=== PATIENT | female | born 1965 | race Caucasian/White ===

== ENCOUNTER 2021-02-14 18:40 | Emergency (ER) | payer SELFPAY ==
[~2021-02-14] VITALS: Ht 162.6 cm; Wt 86.2 kg
[2021-02-14 18:54] VITALS: BP_SYST 211
[2021-02-14 19:32] LABS: BASOPHILS # (AUTO) 0.1 K/uL (0.0-0.2); BASOPHILS % (AUTO) 0.5 % (0.0-2.0); EOSINOPHILS # (AUTO) 0.3 K/uL (0.0-0.4); EOSINOPHILS % (AUTO) 2.8 % (0.0-4.0); HEMATOCRIT 34.5 % (36-48); HEMOGLOBIN 11.7 g/dL (12.0-16.0); LYMPHOCYTES # (AUTO) 3.4 K/uL (1.0-5.5); MEAN CORPUSCULAR HEMOGLOBIN 29 pg (27-31); MEAN CORPUSCULAR HGB CONC 34 % (32-36); MEAN CORPUSCULAR VOLUME 85 fL (79.0-98.0); MONOCYTES # (AUTO) 0.5 K/uL (0.0-1.0); NEUTROPHILS # (AUTO) 5.5 K/uL (1.8-7.7); NEUTROPHILS % (AUTO) 56.7 % (40.0-70.0); PLATELET COUNT (AUTO) 329 K/uL (130-430); RED BLOOD CELL COUNT(AUTO) 4.04 MIL/uL (4.2-6.2); RED CELL DISTRIBUTION WIDTH 16.4 % (9.0-15.0); WHITE BLOOD COUNT (AUTO) 9.8 K/uL (4.8-10.8)
[2021-02-14 19:52] LABS: CALCIUM 8.8 mg/dL (8.4-11.0); CREATININE 0.84 mg/dL (0.55-1.30); POTASSIUM 3.3 mmol/L (3.5-5.1)
[2021-02-14 19:57] LABS: ALBUMIN 3.7 g/dL (3.4-4.8); TOTAL BILIRUBIN 0.3 mg/dL (0.0-1.0)
[2021-02-14 20:00] LABS: PROTHROMBIN TIME 9.8 SECS (9.5-12.5)
[2021-02-14] MEDS ORDERED: cloNIDine HCL 0.1 MG TABLET ONE (21:47)
[2021-02-14] MEDS ORDERED: cloNIDine HCL 0.1 MG TABLET PO ONE (22:00)
[2021-02-14 22:05] VITALS: BP_SYST 166
== END 2021-02-14 22:05 | disposition home or self-care (01) ==
LOC: SED 18:40
DX: N93.8 Other specified abnormal uterine and vaginal bleeding (principal)
CPT/HCPCS: 36415; 76376; 80053; 82150-TC; 83690-TC; 84703; 85025; 85610-TC; 85730-TC; 86886; 86900; 86901; 99284

== ENCOUNTER 2024-03-02 11:01 | Inpatient (IN) | payer BC ==
[~2024-03-02] VITALS: Ht 160 cm; Wt 98.9 kg
[2024-03-02 11:05] VITALS: BP_SYST 214; PULSE 96; RESP 19; TEMP 97.3; O2SAT 97
[2024-03-02] MEDS: MORPHINE 4 MG INJ. 4 MG/ML VIAL IM ONE (11:28)
[2024-03-02] MEDS: ONDANSETRON 4 MG ODT TAB PO ONE (11:28)
[2024-03-02] MEDS: cloNIDine HCL 0.1 MG TABLET PO ONE (11:47)
[2024-03-02 11:50] LABS: BASOPHILS # (AUTO) 0.1 K/uL (0.0-0.2); BASOPHILS % (AUTO) 0.4 % (0.0-2.0); EOSINOPHILS % (AUTO) 0.1 % (0.0-4.0); HEMATOCRIT 42.6 % (36-48); HEMOGLOBIN 14.8 g/dL (12.0-16.0); LYMPHOCYTES # (AUTO) 1.3 K/uL (1.0-5.5); LYMPHOCYTES % (AUTO) 9.5 % (20.5-51.5); MEAN CORPUSCULAR HEMOGLOBIN 30 pg (27-31); MEAN CORPUSCULAR HGB CONC 35 % (32-36); MEAN CORPUSCULAR VOLUME 87 fL (79.0-98.0); MONOCYTES # (AUTO) 0.3 K/uL (0.0-1.0); MONOCYTES % (AUTO) 1.9 % (1.7-9.3); NEUTROPHILS # (AUTO) 11.7 K/uL (1.8-7.7); NEUTROPHILS % (AUTO) 88.1 % (40.0-70.0); PLATELET COUNT (AUTO) 347 K/uL (130-430); RED BLOOD CELL COUNT(AUTO) 4.87 MIL/uL (4.2-6.2); RED CELL DISTRIBUTION WIDTH 15.1 % (9.0-15.0); WHITE BLOOD COUNT (AUTO) 13.3 K/uL (4.8-10.8)
[2024-03-02] MEDS: NACL 0.9% 1,000 ML IV ONE (12:08)
[2024-03-02 12:09] LABS: INR 0.9 (0.8-1.2); PROTHROMBIN TIME 9.8 SECS (9.5-12.5)
[2024-03-02 12:18] LABS: ANION GAP 12 (5-15); CALCIUM 9.5 mg/dL (8.4-11.0); CARBON DIOXIDE 24 mmol/L (23-29); CHLORIDE 103 mmol/L (98-107); CREATININE 1.59 mg/dL (0.55-1.30); GFR AFRICAN AMERICAN 43 mL/min (>90); GLUCOSE 172 mg/dL (74-106); SODIUM SERUM 139 mmol/L (136-145); UREA NITROGEN, BLOOD 19 mg/dL (8-21)
[2024-03-02 12:19] LABS: GFR NON AFRICAN-AMERICAN 35 mL/min (>90)
[2024-03-02] MEDS: LABETALOL HCL 20 MG/4 ML CARTRIDGE IVP ONE (12:28)
[2024-03-02] MEDS: PIPERACILLIN/TAZO 3.375 GM in NS 50 ML IV ONE (12:30)
[2024-03-02 12:31] LABS: ALANINE AMINOTRANSFERASE 21 U/L (12-78); ALBUMIN 3.7 g/dL (3.4-4.8); AMYLASE 51 U/L (0-100); ASPARTATE AMINOTRANSFERASE 15 U/L (10-37); BILIRUBIN,DIRECT 0.1 mg/dL (0.0-0.3); LACTATE DEHYDROGENASE 158 U/L (81-234); LIPASE 21 U/L (16-77); TOTAL BILIRUBIN 0.3 mg/dL (0.0-1.0); TOTAL PROTEIN, SERUM 8.4 g/dL (6.4-8.3)
[2024-03-02] MEDS: cefTRIAXone 1 GM IVPB PREMIX 50 ML IV SCH (12:51)
[2024-03-02] MEDS ORDERED: PIPERACILLIN/TAZOBACTAM 3.375 GM/VIAL (ZOSYN) IV ONE (14:35)
[2024-03-02] MEDS ORDERED: GLYCOPYRROLATE 0.2 MG/ML VIAL ONE (15:41)
[2024-03-02] MEDS ORDERED: NS IRRIG SOLN 1000 ML IR ONE (15:41)
[2024-03-02] MEDS ORDERED: ONDANSETRON HCL 4 MG/2 ML VIAL ONE ×2 (15:41→18:09)
[2024-03-02] MEDS ORDERED: VECURONIUM BROMIDE 10 MG/VIAL (NORCURON) ONE (15:41)
[2024-03-02] MEDS ORDERED: ePHEDrine sulfate 50 MG/ML VIAL ONE (15:41)
[2024-03-02] MEDS ORDERED: LIDOCAINE 1% 10 MG/ML, 20 ML MDV ONE (15:41)
[2024-03-02] MEDS ORDERED: NEOSTIGMINE METHYLSULFATE 1 MG/ML, 10 ML VIAL ONE (15:41)
[2024-03-02] MEDS ORDERED: LR 1,000 ML IV.SOLN IV ONE (15:41)
[2024-03-02] MEDS ORDERED: SUCCINYLCHOLINE CHLORIDE 20 MG/ML(QUELICIN) ONE (15:41)
[2024-03-02] MEDS ORDERED: PROPOFOL 200MG/ 20ML VIAL (DIPRIVAN) IV ONE (15:41)
[2024-03-02] MEDS ORDERED: BUPIVACAINE /PF 0.25% 30 ML VIAL INJ ONE (15:41)
[2024-03-02] MEDS ORDERED: SEVOFLURANE 15 MIN GAS INH ONE (15:41)
[2024-03-02] MEDS ORDERED: DEXAMETHASONE SOD PHOSPHATE 4 MG/ML VIAL ONE (15:41)
[2024-03-02] MEDS ORDERED: fentaNYL CITRATE/PF 100 MCG/2 ML AMP ONE (15:46)
[2024-03-02] MEDS ORDERED: KETOROLAC TROMETHAMINE 30 MG VIAL IM PRN ×2 (16:15→16:30)
[2024-03-02] MEDS ORDERED: HYDROmorphone 1 MG/ML INJ. CARTRIDGE IVP PRN ×4 (16:15→16:30)
[2024-03-02] MEDS ORDERED: hydrALAZINE HCL 20 MG/ML VIAL IV PRN ×2 (16:15→16:30)
[2024-03-02] MEDS ORDERED: NALOXONE HCL 0.4 MG/ML AMP (NARCAN) IVP PRN ×2 (16:15→16:30)
[2024-03-02] MEDS ORDERED: ONDANSETRON HCL 4 MG/2 ML VIAL IVP PRN (16:30)
[2024-03-02] MEDS: ONDANSETRON HCL 4 MG/2 ML VIAL IVP PRN (18:00)
[2024-03-02 18:52] VITALS: BP_SYST 136; PULSE 90; RESP 17; O2SAT 97
[2024-03-02 19:45] VITALS: BP_SYST 142; PULSE 91; RESP 16; TEMP 98.2; O2SAT 97
[2024-03-02] MEDS: D5/0.45 NS 1,000 ML IV SCH (22:35)
[2024-03-02 23:30] VITALS: BP_SYST 130; PULSE 85; RESP 18; TEMP 98.2; O2SAT 95
[2024-03-02 23:33] LABS: BILIRUBIN,URINE NEGATIVE (NEGATIVE); BLOOD, URINE NEGATIVE (NEGATIVE); CLARITY/URINE CLEAR (CLEAR); COLOR,URINE YELLOW (YELLOW); GLUCOSE,URINE NEGATIVE (NEGATIVE); KETONES,URINE NEGATIVE (NEGATIVE); LEUKOCYTE ESTERASE ,URINE NEGATIVE (NEGATIVE); NITRITE, URINE NEGATIVE (NEGATIVE); PH,URINE 6.5 (5.0-8.0); PROTEIN URINE NEGATIVE (NEGATIVE); UROBILINOGEN,URINE 0.2 (0.2-1.0)
[2024-03-03 08:00] VITALS: BP_SYST 138; PULSE 74; RESP 18; TEMP 97.6; O2SAT 98
[2024-03-03 11:09] VITALS: BP_SYST 140; PULSE 68; RESP 16; TEMP 98.4; O2SAT 94
[2024-03-03 16:32] VITALS: BP_SYST 139; PULSE 68; RESP 16; TEMP 98.2; O2SAT 95
[2024-03-03] MEDS: CEFTRIAXONE SOD 1 GM/ D5W 50 ML IV ONE (18:15)
[2024-03-03] MEDS ORDERED: NALOXONE HCL 0.4 MG/ML AMP (NARCAN) IVP PRN (18:15)
[2024-03-03] MEDS: MORPHINE 2 MG/ML INJ. SYRINGE IVP PRN (18:24)
[2024-03-03 20:00] VITALS: BP_SYST 149; PULSE 86; RESP 18; TEMP 97.9; O2SAT 96
[2024-03-04] VITALS: BP_SYST 142; PULSE 73; RESP 16; TEMP 98.2; O2SAT 97
[2024-03-04 08:00] VITALS: BP_SYST 138; PULSE 77; RESP 18; TEMP 97.6; O2SAT 98
[2024-03-04] MEDS: CEFTRIAXONE SOD 1 GM/ D5W 50 ML IV SCH (10:55)
[2024-03-04 12:28] VITALS: BP_SYST 146; PULSE 78; RESP 19; TEMP 98.1; O2SAT 97
[2024-03-04] MEDS ORDERED: VALS160T2 PO (14:09)
[2024-03-04] MEDS ORDERED: PARO-147 PO (14:09)
[2024-03-04] MEDS ORDERED: TRAZ-250 PO (14:09)
[2024-03-04 15:01] VITALS: BP_SYST 130; PULSE 78; RESP 18; TEMP 98.6; O2SAT 98
[2024-03-04 16:06] VITALS: BP_SYST 140; PULSE 77; RESP 20; TEMP 97.6; O2SAT 98
== END 2024-03-04 17:10 | disposition home or self-care (01) | DRG 854 ==
LOC: SED 11:01 → SMU 12:27
PROVIDERS: ADMIT Internal Medicine; ATTEND Internal Medicine
PROC: 0WUF0JZ Supplement Abdominal Wall with Synthetic Substitute, Open Approach (ICD-10-PCS; principal; 2024-03-02 15:45)
DX: A41.9 Sepsis, unspecified organism (principal); K43.0 Incisional hernia with obstruction, without gangrene; F41.9 Anxiety disorder, unspecified; F32.A Depression, unspecified; I10 Essential (primary) hypertension; K29.70 Gastritis, unspecified, without bleeding; Z85.42 Personal history of malignant neoplasm of other parts of uterus
CPT/HCPCS: 36415; 71045; 80048; 80076; 81001; 81003; 82150; 83605; 83615; 83690; 84484; 85025; 85610; 85730; 86886; 86900; 86901; 87040; 87081; 88302; 93005; 99285; A4649; C1781; J0330; J0696; J1100; J2001; J2270; J2405; J2543; J2704; J2710; J3010; J3490; J7060; J7120; Q0162